=== PATIENT | male | born 1990 ===

== ENCOUNTER 2017-08-17 22:47 | Emergency (ER) | payer MEDICAID ==
[2017-08-17] MEDS ORDERED: Morphine 4 mg/ml ISec IVP STA (23:01)
[2017-08-17] MEDS ORDERED: Morphine 2 mg/ml ISec IVP STA (23:01)
[2017-08-17] MEDS ORDERED: Morphine 4 mg/ml ISec ONE (23:02)
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
[2017-08-18] MEDS ORDERED: TDAP Vaccine 0.5 mL Syr IM ONE (04:08)
[2017-08-18 04:15] VITALS: BP 130/85; PULSE 86; RESP 18; O2SAT 97
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
== END 2017-08-18 04:14 | disposition home or self-care (01) ==
LOC: ED 22:47
DX: S09.90XA Unspecified injury of head, initial encounter (principal); Y08.89XA Assault by other specified means, initial encounter; Y92.89 Other specified places as the place of occurrence of the external cause
CPT/HCPCS: 70450; 70486; 71250; 73130; 73562; 99285; J2270

== ENCOUNTER 2017-08-28 13:07 | Emergency (ER) | payer MEDICAID ==
--- NOTE | 2017-08-28 13:41 | ED PDOC ---
Arrival/HPI - General Historian: Patient <Sina Brunner - Last Filed: 08/28/17 13:37> <Elizabeth Delong - Last Filed: 08/28/17 17:01> - General Time Seen by Provider: 08/28/17 13:29 - History of Present Illness Narrative History of Present Illness (Text): 08/28/17 13:38 26 y/o male, no significant pmh, nkda, here for the suture removal s/p sutured 10 days ago and told to come back to remove the suture from the rt. hand 2nd digit and rt. ear. pt. stated that it heals well, no numbness or tingling, no rash, no night sweat, no dizziness, no other medical or psychological complaints. (Sina Brunner) Past Medical History - Provider Review Nursing Documentation Reviewed: Yes - Infectious Disease Hx of Infectious Diseases: None - Psychiatric Hx Substance Use: No - Anesthesia Hx Anesthesia: No <Sina Brunner - Last Filed: 08/28/17 13:37> Family/Social History - Physician Review Nursing Documentation Reviewed: Yes Family/Social History: Unknown Family HX Smoking Status: Never Smoked Hx Alcohol Use: No Hx Substance Use: No <Sina Brunner - Last Filed: 08/28/17 13:37> Allergies/Home Meds <Sina Brunner - Last Filed: 08/28/17 13:37> <Elizabeth Delong - Last Filed: 08/28/17 17:01> Allergies/Adverse Reactions: Allergies No Known Allergies Allergy (Verified 08/28/17 13:26) Home Medications: Home Meds Medication Instructions Recorded Confirmed No Known Home Med 08/17/17 08/28/17 Review of Systems - Review of Systems Constitutional: absent: Fatigue, Fevers Eyes: absent: Vision Changes Respiratory: absent: SOB, Cough Cardiovascular: absent: Chest Pain Gastrointestinal: absent: Abdominal Pain, Nausea, Vomiting Skin: Laceration (suture wounds). absent: Rash, Pruritis Neurological: absent: Headache, Dizziness Psychiatric: absent: Anxiety, Depression <Sina Brunner - Last Filed: 08/28/17 13:37> Physical Exam Vital Signs Reviewed: Yes Temperature: Afebrile Blood Pressure: Normal Pulse: Regular Respiratory Rate: Normal Appearance: Positive for: Well-Appearing, Non-Toxic, Comfortable Pain Distress: None Mental Status: Positive for: Alert and Oriented X 3 - Systems Exam Head: Present: Atraumatic, Normocephalic Pupils: Present: PERRL Extroacular Muscles: Present: EOMI Conjunctiva: Present: Normal Mouth: Present: Moist Mucous Membranes Neck: Present: Normal Range of Motion Respiratory/Chest: Present: Clear to Auscultation, Good Air Exchange. No: Respiratory Distress, Accessory Muscle Use Cardiovascular: Present: Regular Rate and Rhythm, Normal S1, S2. No: Murmurs Abdomen: No: Tenderness, Distention, Peritoneal Signs Back: Present: Normal Inspection Upper Extremity: Present: Normal Inspection. No: Cyanosis, Edema Lower Extremity: Present: Normal Inspection. No: Edema Neurological: Present: GCS=15, CN II-XII Intact, Speech Normal Skin: Present: Warm, Dry, Normal Color, Other (Rt. hand 2nd digit visible 5 sutures of nylon with wound completed healed and dry. Rt. ear visible 6 sutures of nylon with the wound healed and dry. ). No: Rashes Psychiatric: Present: Alert, Oriented x 3, Normal Insight, Normal Concentration <Sina Brunner - Last Filed: 08/28/17 13:37> Vital Signs Temp Pulse Resp BP Pulse Ox 08/28/17 13:56 98.2 F 84 18 134/80 100 08/28/17 13:27 98.2 F 88 18 144/87 100 Medical Decision Making <Sina Brunner - Last Filed: 08/28/17 13:37> <Elizabeth Delong - Last Filed: 08/28/17 17:01> ED Course and Treatment: 08/28/17 13:40 -total of 11 sutures removed, no visible remaining sutures on the rt. hand 2nd digit or rt. ear, wound healed well and dry, no signs of infection. -Discharge home with education on follow up with your own pmd within 2 days, return to the ER for any new or worsening signs or symptoms. (Sina Brunner) - PA / LINEN FOLDER / Resident Statement / has reviewed & agrees with the documentation as recorded. <Snia Brunner - Last Filed: 08/28/17 13:37> - PA / LINEN FOLDER / Resident Statement / has reviewed & agrees with the documentation as recorded. <Elizabeth Delong - Last Filed: 08/28/17 17:01> Disposition/Present on Arrival - Present on Arrival Any Indicators Present on Arrival: No History of DVT/PE: No History of Uncontrolled Diabetes: No Urinary Catheter: No History of Decub. Ulcer: No History Surgical Site Infection Following: None - Disposition Have Diagnosis and Disposition been Completed?: Yes Disposition Time: 13:41 Patient Plan: Discharge <Sina Brunner - Last Filed: 08/28/17 13:37> <Elizabeth Delogn - Last Filed: 08/28/17 17:01> - Disposition Diagnosis: Visit for suture removal Disposition: HOME/ ROUTINE Condition: GOOD Additional Instructions: -Discharge home with education on follow up with your own pmd within 2 days, return to the ER for any new or worsening signs or symptoms. Referrals: [facility] [Outside] - Follow up with primary Forms: WORK NOTE
[2017-08-28 13:47] VITALS: RESP 18; TEMP 98.2; O2SAT 100; BMI 22.9
[2017-08-28 13:57] VITALS: BP 134/80; PULSE 84
== END 2017-08-28 13:58 | disposition home or self-care (01) ==
LOC: ED 13:07
DX: Z48.02 Encounter for removal of sutures (principal)

== ENCOUNTER 2018-05-08 07:17 | Emergency (ER) | payer MEDICAID, OTHER ==
[2018-05-08 07:17] VITALS: BMI 22.9
--- NOTE | 2018-05-08 07:56 | ED PDOC ---
Arrival/HPI - General Historian: Patient - History of Present Illness Narrative History of Present Illness (Text): Patient is a 27 yr old male with no PMH who presents with 2 weeks of cough and congestion with blood tinged sputum. patient states that over the last 4 dyas he has developed body aches chills, fevers, MARINELLI, nausea with one episode of vomiting Tuesday and diarrhea. He denies hematemesis and hematochezia. He additionally endorses a sore throat and post nasal drip type symptoms. He otherwise denies Dizziness, CP, SOB, abdominal pain, dysuria, and extremity numbness/weakness. Patient did not get a flu shot this year. 05/08/18 07:52 Time/Duration: Prior to Arrival, > week (2 weeks) Symptom Onset: Sudden Symptom Course: Worsening Quality: Aching Severity Level: 7 <Tarah Baires - Last Filed: 05/08/18 16:45> <Michel Irizarry DO - Last Filed: 05/08/18 17:05> - General Chief Complaint: Cough, Cold, Congestion Time Seen by Provider: 05/08/18 07:21 Past Medical History - Provider Review Nursing Documentation Reviewed: Yes - Infectious Disease Hx of Infectious Diseases: None - Cardiac Hx Cardiac Disorders: No Hx Hypertension: No - Pulmonary Hx Tuberculosis: No - Neurological HX Cerebrovascular Accident: No Hx Seizures: No - Hematological/Oncological Hx Cancer: No - Genitourinary/Gynecological Hx Sexually Transmitted Diseases: No - Psychiatric Hx Substance Use: No - Anesthesia Hx Anesthesia: No <Tarah Baires - Last Filed: 05/08/18 16:45> Family/Social History - Physician Review Nursing Documentation Reviewed: Yes Family/Social History: Unknown Family HX Smoking Status: Never Smoked Hx Alcohol Use: No Hx Substance Use: No <Tarah Baires - Last Filed: 05/08/18 16:45> Allergies/Home Meds <Tarah Baires - Last Filed: 05/08/18 16:45> <Michel Irizarry DO - Last Filed: 05/08/18 17:05> Allergies/Adverse Reactions: Allergies No Known Allergies Allergy (Verified 12/20/17 19:59) Review of Systems - Physician Review All systems were reviewed & negative as marked: Yes - Review of Systems Constitutional: Fatigue, Fevers Eyes: absent: Vision Changes Respiratory: Cough, Sputum (blood tinged). absent: SOB Cardiovascular: absent: Chest Pain, Palpitations Gastrointestinal: Diarrhea, Nausea, Vomiting (one episode tuesday). absent: Abdominal Pain, Constipation, Hematochezia, Hematemesis Genitourinary Male: absent: Dysuria Musculoskeletal: Myalgias. absent: Arthralgias Skin: absent: Rash, Skin Lesions Neurological: Headache. absent: Dizziness Endocrine: Diaphoresis <Tarah Baires - Last Filed: 05/08/18 16:45> Physical Exam Vital Signs Temp Pulse Resp BP Pulse Ox 05/08/18 07:46 102.9 F H 112 H 20 135/85 99 Temperature: Febrile Blood Pressure: Normal Pulse: Tachycardic Respiratory Rate: Normal Appearance: Positive for: Non-Toxic, Ill-Appearing, Uncomfortable Pain Distress: Moderate Mental Status: Positive for: Alert and Oriented X 3 - Systems Exam Head: Present: Atraumatic, Normocephalic Pupils: Present: PERRL Extroacular Muscles: Present: EOMI Mouth: Present: Moist Mucous Membranes Pharnyx: Present: ERYTHEMA, Other (post pharyngeal cobblestoning). No: EXUDATE, TONSILS ENLARGED Neck: Present: Normal Range of Motion Respiratory/Chest: Present: Good Air Exchange, Wheezes (inspiratory bilaterally). No: Respiratory Distress, Accessory Muscle Use Cardiovascular: Present: Normal S1, S2, Tachycardic. No: Regular Rate and Rhythm, Murmurs Abdomen: No: Tenderness, Distention, Peritoneal Signs, Guarding Upper Extremity: Present: Normal Inspection, Normal ROM, NORMAL PULSES. No: Cyanosis, Edema Lower Extremity: Present: Normal Inspection, NORMAL PULSES. No: Edema, CALF TENDERNESS Neurological: Present: GCS=15, CN II-XII Intact, Speech Normal Skin: Present: Normal Color, Diaphoretic, Hot. No: Rashes Psychiatric: Present: Alert, Oriented x 3, Normal Insight, Normal Concentration <Tarah Baires - Last Filed: 05/08/18 16:45> Vital Signs Temp Pulse Resp BP Pulse Ox 05/08/18 07:46 102.9 F H 112 H 20 135/85 99 <Michel Irizarry DO - Last Filed: 05/08/18 17:05> Medical Decision Making ED Course and Treatment: Impression: 27 yr old male with No pMH with flu like symptoms and sore throat who did not obtain a flu shot this year Plan: CXR rapid flu rapid strep tylenol for fever pseudoephedrine reassess and dispo 05/08/18 07:59 - Lab Interpretations Lab Results: Lab Results 05/08/18 08:45: Grp A Beta Strep Ag Negative 05/08/18 08:20: Influenza Typ A,B (EIA) Negative for flu a/b Interpretation: All labs normal - RAD Interpretation Radiology Orders: 05/08/18 07:51 CHEST ONE VIEW [RAD] Stat - Medication Orders Current Medication Orders: Acetaminophen (Tylenol 325mg Tab) 650 mg PO STAT STA Stop: 05/08/18 07:52 Pseudoephedrine HCl (Sudafed Oral Syrup) 30 mg PO Q4H PRN PRN Reason: Cough and congestion <Tarah Baires - Last Filed: 05/08/18 16:45> ED Course and Treatment: 05/08/18 08:00 27 year old male presents to the ED for evaluation of flu-like symptoms. In agreement with resident note which contains more details about the patient. Patient seen and evaluated with resident. Came up with plan and treatment together. - RAD Interpretation Radiology Orders: 05/08/18 07:51 CHEST ONE VIEW [RAD] Stat - Medication Orders Current Medication Orders: Discontinued Medications Acetaminophen (Tylenol 325mg Tab) 650 mg PO STAT STA Stop: 05/08/18 07:52 Last Admin: 05/08/18 08:17 Dose: 650 mg FELA Pain/Vitals Document 05/08/18 08:17 RICHARD (Rec: 05/08/18 08:17 RICHARD [id number]) Pain Reassessment Is This A Pain ReAssessment? No Sleep Is patient sleeping during reassessment? No Presence of Pain Presence of Pain Yes Pseudoephedrine HCl (Sudafed Tab) 30 mg PO Q4H PRN PRN Reason: Cough and congestion Pseudoephedrine HCl (Sudafed Tab) 30 mg PO STAT STA Stop: 05/08/18 07:56 Last Admin: 05/08/18 08:17 Dose: 30 mg <Michel Irizarry DO - Last Filed: 05/08/18 17:05> - PA / DIRECTOR MEDICAL SCIENCE / Resident Statement CORTES has reviewed & agrees with the documentation as recorded. MD/ has examined the patient and agrees with the treatment plan. - Scribe Statement The provider has reviewed the documentation as recorded by the Jaxsonibe Mansi Powell. All medical record entries made by the Jaxsonibe were at my direction and personally dictated by me. I have reviewed the chart and agree that the record accurately reflects my personal performance of the history, physical exam, medical decision making, and the department course for this patient. I have also personally directed, reviewed, and agree with the discharge instructions and disposition. <Micehl Irizarry DO - Last Filed: 05/08/18 17:05> Disposition/Present on Arrival - Present on Arrival Any Indicators Present on Arrival: No History of DVT/PE: No History of Uncontrolled Diabetes: No Urinary Catheter: No History of Decub. Ulcer: No History Surgical Site Infection Following: None - Disposition Have Diagnosis and Disposition been Completed?: Yes Disposition Time: 09:29 Patient Plan: Discharge <Tarah Baires - Last Filed: 05/08/18 16:45> - Disposition Disposition Time: 09:10 <Michel Irizarry DO - Last Filed: 05/08/18 17:05> - Disposition Diagnosis: Viral syndrome, Flu-like symptoms Disposition: HOME/ ROUTINE Condition: GOOD Discharge Instructions (ExitCare): Viral Upper Respiratory Infection, Adult (DC), Viral Syndrome (DC) Additional Instructions: Please follow up with your primary care physician within 3-5 days of discharge If your symptoms worsen or new concerning symptoms develop please return to the nearest ER immediately for further evaluation Prescriptions: Ibuprofen [Motrin] 600 mg PO Q6 PRN #20 tab PRN Reason: Pain, Moderate (4-7) Oseltamivir Phosphate [Tamiflu] 75 mg PO BID #10 capsule Referrals: FAMILY PROVIDER,NO [Primary Care Provider] - Follow up with primary [facility] at [facility] [place] [Outside] - Follow up with primary Kasandra Aguilar MD [Medical Doctor] - Follow up with primary Forms: [employer] (Hebrew), WORK NOTE
--- NOTE | 2018-05-08 08:44 | RAD ---
Date of service: 05/08/2018 HISTORY: cough, r/o pna COMPARISON: Chest CT 08/17/2017. FINDINGS: LUNGS: No active pulmonary disease. PLEURA: No significant pleural effusion identified, no pneumothorax apparent. CARDIOVASCULAR: No aortic atherosclerotic calcification present. Normal cardiac size. No pulmonary vascular congestion. OSSEOUS STRUCTURES: No significant abnormalities. VISUALIZED UPPER ABDOMEN: Normal. OTHER FINDINGS: None. IMPRESSION: No interval acute cardiopulmonary disease appreciated.
[2018-05-08 10:22] VITALS: BP 108/53; PULSE 85; RESP 18; TEMP 98.5; O2SAT 100
== END 2018-05-08 10:30 | disposition home or self-care (01) ==
LOC: ED 07:17
DX: J11.1 Influenza due to unidentified influenza virus with other respiratory manifestations (principal); B34.9 Viral infection, unspecified

== ENCOUNTER 2018-05-18 23:48 | Emergency (ER) | payer SELFPAY ==
[2018-05-18 23:48] VITALS: BMI 22.9
[2018-05-19 00:03] VITALS: RESP 18; TEMP 97.8
[2018-05-19] MEDS ORDERED: cefTRIAXone (Rocephin) 250 mg Inj IM STA (00:12)
--- NOTE | 2018-05-19 00:16 | ED PDOC ---
Arrival/HPI - General Chief Complaint: Male Genitourinary Time Seen by Provider: 05/18/18 23:49 Historian: Patient - History of Present Illness Narrative History of Present Illness (Text): 05/19/18 00:14 27yo male with no pmhx who present with 3weeks history of penile discomfort. States he was having dysuria for a week, it resolved and he started having a yellowish penile discharge. Notes he is sexually active without protection. Denies abdominal pain, penile lesion, fever, back pain. Past Medical History - Provider Review Nursing Documentation Reviewed: Yes - Infectious Disease Hx of Infectious Diseases: None - Cardiac Hx Cardiac Disorders: No Hx Hypertension: No - Pulmonary Hx Tuberculosis: No - Neurological HX Cerebrovascular Accident: No Hx Seizures: No - Hematological/Oncological Hx Cancer: No - Genitourinary/Gynecological Hx Sexually Transmitted Diseases: No - Psychiatric Hx Substance Use: Yes - Surgical History Other/Comment: sx in rfa - Anesthesia Hx Anesthesia: No Hx Anesthesia Reactions: No Hx Malignant Hyperthermia: No Family/Social History - Physician Review Nursing Documentation Reviewed: Yes Family/Social History: Unknown Family HX Smoking Status: Never Smoked Hx Alcohol Use: Yes Frequency of alcohol use: Socially Hx Substance Use: Yes Substance used: marijuana Allergies/Home Meds Allergies/Adverse Reactions: Allergies No Known Allergies Allergy (Verified 12/20/17 19:59) Review of Systems - Physician Review All systems were reviewed & negative as marked: Yes - Review of Systems Constitutional: Normal Eyes: Normal ENT: Normal Respiratory: Normal Cardiovascular: Normal Gastrointestinal: Normal Genitourinary Male: Other (Penile discharge) Musculoskeletal: Normal Skin: Normal Neurological: Normal Endocrine: Normal Hemo/Lymphatic: Normal Psychiatric: Normal Physical Exam Vital Signs Reviewed: Yes Vital Signs Temp Pulse Resp BP Pulse Ox 05/19/18 00:03 97.8 F 76 18 112/65 100 Temperature: Afebrile Blood Pressure: Normal Pulse: Regular Respiratory Rate: Normal Appearance: Positive for: Well-Appearing, Non-Toxic, Comfortable Pain Distress: None Mental Status: Positive for: Alert and Oriented X 3 - Systems Exam Head: Present: Atraumatic, Normocephalic Pupils: Present: PERRL Extroacular Muscles: Present: EOMI Conjunctiva: Present: Normal Mouth: Present: Moist Mucous Membranes Neck: Present: Normal Range of Motion Respiratory/Chest: Present: Clear to Auscultation, Good Air Exchange. No: Respiratory Distress, Accessory Muscle Use Cardiovascular: Present: Regular Rate and Rhythm, Normal S1, S2. No: Murmurs Abdomen: No: Tenderness, Distention, Peritoneal Signs Back: Present: Normal Inspection Upper Extremity: Present: Normal Inspection. No: Cyanosis, Edema Lower Extremity: Present: Normal Inspection. No: Edema Neurological: Present: GCS=15, CN II-XII Intact, Speech Normal Skin: Present: Warm, Dry, Normal Color. No: Rashes Psychiatric: Present: Alert, Oriented x 3, Normal Insight, Normal Concentration Medical Decision Making ED Course and Treatment: 05/19/18 01:31 PT presented to ED for penile discharge Chlamydia/gono was ordered He was treated with Azithro and Rocephin Was counselled on safe sex practice Advised to avoid sex until he gets his result and if positive have his sexual partner treated. He verbalized understanding - Medication Orders Current Medication Orders: Discontinued Medications Azithromycin (Zithromax) 1,000 mg PO STAT STA; Protocol Stop: 05/19/18 00:12 Ceftriaxone Sodium (Rocephin) 250 mg IM STAT STA; Protocol Stop: 05/19/18 00:13 Disposition/Present on Arrival - Present on Arrival Any Indicators Present on Arrival: No History of DVT/PE: No History of Uncontrolled Diabetes: No Urinary Catheter: No History of Decub. Ulcer: No History Surgical Site Infection Following: None - Disposition Have Diagnosis and Disposition been Completed?: Yes Diagnosis: Urethritis Disposition: HOME/ ROUTINE Disposition Time: 00:40 Patient Plan: Discharge Patient Problems: Current Active Problems Problem Status Onset Urethritis Acute Condition: STABLE Discharge Instructions (ExitCare): Urethritis (DC) Additional Instructions: Follow up with your doctor Return to ED for any new symptoms Referrals: Kasandra Aguilar MD [Medical Doctor] - Follow up with primary Forms: [employer] (Guinean)
[2018-05-19] MEDS ORDERED: Lidocaine 1% Inj (20ml) ONE (00:28)
[2018-05-19 00:36] LABS: URINE BILIRUBIN NEGATIVE (NEGATIVE); URINE BLOOD TRACE-INTACT (NEGATIVE); URINE GLUCOSE (UA) NEGATIVE (NEGATIVE); URINE LEUKOCYTE ESTERASE MODERATE Leu/uL (NEGATIVE); URINE PROTEIN NEGATIVE mg/dL (<30 mg/dL); URINE UROBILINOGEN 0.2 E.U./dL (<1 E.U./dL)
[2018-05-19 00:38] LABS: URINE APPEARANCE CLOUDY (CLEAR); URINE COLOR YELLOW (YELLOW)
[2018-05-19 00:49] LABS: URINE BACTERIA SMALL /hpf; URINE EPITHELIAL CELLS 0 - 2 /hpf (0-5); URINE RBC 0 - 2 /hpf (0-2); URINE WBC 25 - 30 /hpf (0-6)
[2018-05-19 02:45] VITALS: BP 110/68; PULSE 72; O2SAT 99
== END 2018-05-19 01:25 | disposition home or self-care (01) ==
LOC: ED 23:48
DX: N34.2 Other urethritis (principal)
CPT/HCPCS: 81001; 87086; 87181; 87491; 87591; 96372; 99284; J0696